=== PATIENT | female | born 1980 | race Caucasian/White ===

== ENCOUNTER 2017-04-21 21:14 | Emergency (ER) | payer OTHER ==
[~2017-04-21] VITALS: Ht 165.1 cm; Wt 86.2 kg
[2017-04-21] MEDS ORDERED: DEPAKOTE 250MG250 M1 PO (21:22)
[2017-04-21] MEDS ORDERED: KEPPRA 500 MG500 M1 PO (21:22)
[2017-04-21 21:32] LABS: MCH 30.8 pg (26.0-34.0); PLATELET COUNT 253 thou/uL (150-400); RDW 12.8 % (10.5-14.5)
[2017-04-21 21:34] LABS: ABSOLUTE NEUTROPHILS 4.1 thou/uL (1.4-8.2); BASOPHILS 0.6 % (0.0-2.0); EOSINOPHILS 5.3 % (0.0-3.0); HEMATOCRIT 39.4 % (37.0-47.0); HEMOGLOBIN 13.4 gm/dL (12.0-15.0); LYMPHOCYTES 40.1 % (24.0-44.0); MCV 90.6 fL (80.0-100.0); MONOCYTES 6.6 % (1.0-8.0); POLYS 47.4 % (36.0-66.0); RBC 4.35 mil/uL (4.20-5.00); WBC 8.7 thou/uL (4.0-11.0)
[2017-04-21 21:43] LABS: CALCIUM 8.8 mg/dL (8.5-10.1); CREATININE 0.9 mg/dL (0.6-1.0); POTASSIUM 3.9 mmol/L (3.5-5.1)
[2017-04-21 21:47] LABS: ALBUMIN 3.7 g/dL (3.4-5.0); DIRECT BILIRUBIN < 0.1 mg/dL (<0.1-0.3); SGOT 25 U/L (15-37); SGPT 34 U/L (30-65); TOTAL BILIRUBIN 0.2 mg/dL (<0.1-1.0); TOTAL PROTEIN 6.9 g/dL (6.4-8.2)
[2017-04-21 22:18] LABS: URINE BILIRUBIN NEGATIVE (Negative); URINE BLOOD NEGATIVE (Negative); URINE CLARITY CLOUDY; URINE COLOR YELLOW; URINE GLUCOSE-RANDOM* NEGATIVE (Negative); URINE KETONES TRACE (Negative); URINE LEUKOCYTES 1+ (Negative); URINE NITRITE NEGATIVE (Negative); URINE PROTEIN (DIPSTICK) TRACE (Negative); URINE SPECIFIC GRAVITY >= 1.030 (1.005-1.035); URINE UROBILINOGEN 0.2 E.U./dl (0.2-1.0)
[2017-04-21 22:25] LABS: AMP/METHAMP Negative (Negative); BARBITURATES Negative (Negative); BENZODIAZEPINES Negative (Negative); COCAINE Negative (Negative); METHADONE Negative (Negative); OPIATES POSITIVE (Negative); PCP Negative (Negative)
[2017-04-21 22:31] LABS: SQUAMOUS >10 Many /LPF (0-3)
[2017-04-21 22:32] LABS: BACTERIA >30 Many /HPF (None Seen); CASTS None Seen /LPF (None Seen); CRYSTALS None Seen /LPF (None Seen); URINE RBC 0-2 Rare /HPF (0-2)
[2017-04-21] MEDS ORDERED: LICE TREATMENT59 ML TOP (22:55)
[2017-04-21] MEDS ORDERED: STROMECTOL3 MG PO (22:55)
[2017-07-05] MEDS ORDERED: KEPPRA 500 MG500 M1 PO (20:17)
[2017-07-05] MEDS ORDERED: NAPROSYN500 MG PO (22:44)
== END 2017-04-21 23:00 | disposition home or self-care (01) ==
LOC: ER 21:14
PROVIDERS: Physician Assistant
DX: G40.909 Epilepsy, unspecified, not intractable, without status epilepticus (principal); F12.10 Cannabis abuse, uncomplicated; F11.10 Opioid abuse, uncomplicated